=== PATIENT | female | born 1990 | race Caucasian/White ===

== ENCOUNTER → 2020-06-08 | Day surgery (SDC) | payer OTHER ==
[~2020-06-08] MED LIST: CLARITIN10 MG PO; FOLIC ACID1 MG PO; HYDROCODONE-AC1 EACH PO; IBUPROFEN600 MG PO; METFORMIN HCL1000 MG PO; METHYLERGO0.2 MG/1 M PO; METOPROLOL SUCC25 MG PO; PRENATAL VITAM1 EAC5 PO; SINGULAIR10 MG PO; VITAMIN D3125 MCG PO
[2020-06-08 08:57] LABS: HEMOGLOBIN 12.4 gm/dl (12.3-15.3); RED BLOOD COUNT 4.53 M/UL (4.00-5.10); WHITE BLOOD COUNT 11.4 K/UL (4.5-11.0)
[2020-06-08 09:17] LABS: BUN/CREATININE RATIO 9 (0-10)
== END | disposition home or self-care (01) ==
LOC: OR 07:20
PROVIDERS: Obstetrics & Gynecology
DX: O02.1 Missed abortion (principal); O16.1 Unspecified maternal hypertension, first trimester; O99.511 Diseases of the respiratory system complicating pregnancy, first trimester; J45.909 Unspecified asthma, uncomplicated; Z3A.09 9 weeks gestation of pregnancy
CPT/HCPCS: 36415; 80048; 81001; 85025; 86850; 86900; 86901; J1100; J1885; J2001; J2250; J2405; J2704; J2790; J3010; J7120

== ENCOUNTER → 2020-11-24 | Outpatient (CLI) | payer OTHER ==
[2020-11-24 11:12] LABS: HEMOGLOBIN 13.7 gm/dl (12.3-15.3); RED BLOOD COUNT 4.83 M/UL (4.00-5.10); WHITE BLOOD COUNT 9.3 K/UL (4.5-11.0)
== END ==
LOC: LAB 10:48
PROVIDERS: Internal Medicine
DX: D69.6 Thrombocytopenia, unspecified (principal)
CPT/HCPCS: 36415; 85025

== ENCOUNTER → 2021-06-23 | Outpatient (CLI) | payer OTHER ==
[2021-06-23 17:10] LABS: HEMOGLOBIN 12.3 gm/dl (12.3-15.3); RED BLOOD COUNT 4.36 M/UL (4.00-5.10); WHITE BLOOD COUNT 14.4 K/UL (4.5-11.0)
[2021-06-23 17:22] LABS: BUN/CREATININE RATIO 9 (0-10)
[2021-06-25 07:12] LABS: HBSAG SCREEN Negative (Negative); HCV AB <0.1 (0.0-0.9); HIV AB/P24 AG SCREEN Non Reactive (Non Reactive)
[2021-06-25 08:24] LABS: RUBELLA ANTIBODIES, IGG 1.38 index (Immune >0.99)
[2021-06-25 15:15] LABS: TREPONEMA PALLIDUM ANTIBODIES Non Reactive (Non Reactive)
== END ==
LOC: LAB 16:22
PROVIDERS: Nurse Practitioner Family
DX: Z34.80 Encounter for supervision of other normal pregnancy, unspecified trimester (principal)
CPT/HCPCS: 36415; 80053; 80074; 83036; 84439; 84443; 85025; 86762; 86780; 86803; 86900; 86901; 87340; 87389

== ENCOUNTER 2021-11-08 17:42 | Outpatient (CLI) | payer OTHER | END 2021-11-08 20:44 | disposition home or self-care (01) | LOC: GENOP 17:42 | DX: O99.891 Other specified diseases and conditions complicating pregnancy (principal); Z3A.30 30 weeks gestation of pregnancy | CPT/HCPCS: 81001; 82731; G0463 ==